=== PATIENT | male | born 1950 | race Caucasian/White ===

== ENCOUNTER → 2017-07-04 10:36 | Outpatient (CLI) | payer OTHER, SELFPAY ==
[2017-05-14 09:29] VITALS: BMI 34.9
[2017-07-04 11:08] LABS: Hemoglobin 16.1 g/dl (13.0-16.5); Mean Corpuscular Hgb 33.6 pg (27.0-32.0); Mean Platelet Vol. 10.8 fl (6.2-12.0); Platelet Count 232 K/mm3 (150-450); RBC Distribution Width CV 12.9 % (11.6-14.6); RBC Distribution Width SD 44.4 fl (35.1-43.9); Red Blood Count 4.79 M/mm3 (4.6-6.2); White Blood Count 9.4 K/mm3 (4.4-11.0)
[2017-07-04 11:13] LABS: Scan Indicated on CBC? Y/N NO
[2017-07-04 11:22] LABS: Erythrocyte Sedimentation Rate 4 mm/hr (0-20)
[2017-07-04 11:27] LABS: ALB/GLOB Ratio 1.1 RATIO (0.9-2.4); AST(SGOT) 53 U/L (15-37); Alanine Aminotransfer ALT/SGPT 84 U/L (16-61); Albumin, Serum 3.7 g/dL (3.2-5.0); Alkaline Phosphatase 107 U/L (45-117); BUN 21 mg/dL (7-18); BUN/Creat Ratio 22.5 RATIO (10-20); Chloride 104 mmol/L (98-107); Creatinine, Serum 0.93 mg/dL (0.70-1.30); EST Glomerular Filtration Rate 86 mL/min (>60); Est Glom Filt Rate - Afr Amer 104 mL/min (>60); Globulin 3.5 g/dL (2.2-4.2); Glucose 116 mg/dL (70-110); Potassium 4.8 mmol/L (3.5-5.1); Protein, Total 7.2 g/dL (6.4-8.2); Sodium Level 140 mmol/L (136-145)
[2017-07-04 11:28] LABS: Anion Gap 6 (5-15)
== END ==
PROVIDERS: Family Provider Family Medicine; PCP Family Medicine; Visit Provider Family Medicine
DX: K73.9 Chronic hepatitis, unspecified (principal)
CPT/HCPCS: 36415; 80053; 85027; 85652

== ENCOUNTER → 2017-07-19 09:18 | Outpatient (CLI) | payer OTHER, SELFPAY ==
[2017-07-19 10:49] LABS: Prothrombin Time (Protime)PT. 12.8 SECONDS (11.7-14.9)
[2017-07-19 11:05] LABS: Microalbumin,Random Urine 8.2 mg/L (NO RANGE EST.); Microalbumin:Creatinine Ratio 7.8 mg/g CRE (<30 mg/g CRE)
[2017-07-19 11:06] LABS: Hemoglobin A1c 6.3 % (4.2-6.3)
[2017-07-20 09:55] LABS: HEPATITIS B SURFACE AG Negative (Negative); Hepatitis A IgM Antibody Negative (Negative)
[2017-07-20 13:55] LABS: Hep B Surface Antibodies Non Reactive (.); Hepatitis B Core AB IgM Negative (Negative)
== END ==
PROVIDERS: Family Provider Family Medicine; PCP Family Medicine; Visit Provider Nurse Practitioner Adult Health
DX: B18.2 Chronic viral hepatitis C (principal); E11.9 Type 2 diabetes mellitus without complications
CPT/HCPCS: 36415; 82043; 82570; 83036; 85610; 86705; 86706; 86709; 87340

== ENCOUNTER → 2017-07-30 09:25 | Outpatient (CLI) | payer OTHER, SELFPAY ==
[2017-07-30 11:11] LABS: Cholesterol 159 mg/dL (200); High Density Lipoprotein 44 mg/dL; Triglycerides 186 mg/dL; Very Low Density Lipoprotein 37 mg/dL (5-40)
== END ==
PROVIDERS: Family Provider Family Medicine; PCP Family Medicine; Visit Provider Family Medicine
DX: E78.5 Hyperlipidemia, unspecified (principal)
CPT/HCPCS: 36415; 80061

== ENCOUNTER → 2017-10-11 09:19 | Outpatient (CLI) | payer OTHER, SELFPAY ==
[2017-10-13 03:06] LABS: HCV Quant. RNA PCR HCV Not Detected IU/mL (.)
== END ==
PROVIDERS: Family Provider Family Medicine; PCP Family Medicine; Visit Provider Nurse Practitioner Adult Health
DX: B18.2 Chronic viral hepatitis C (principal)
CPT/HCPCS: 36415; 87522

== ENCOUNTER → 2018-01-28 13:13 | Outpatient (CLI) | payer OTHER, SELFPAY | PROVIDERS: Family Provider Family Medicine; PCP Family Medicine; Visit Provider Family Medicine | DX: R73.01 Impaired fasting glucose (principal) | CPT/HCPCS: 36415; 83036 ==

== ENCOUNTER → 2018-07-22 10:26 | Outpatient (CLI) | payer OTHER, SELFPAY ==
[2018-07-22 11:18] LABS: Microalbumin,Random Urine 5.8 mg/L (NO RANGE EST.); Microalbumin:Creatinine Ratio 11.1 mg/g CRE (<30 mg/g CRE)
[2018-07-22 11:24] LABS: ALB/GLOB Ratio 1.1 RATIO (0.9-2.4); AST(SGOT) 19 U/L (15-37); Alanine Aminotransfer ALT/SGPT 29 U/L (16-61); Albumin, Serum 3.9 g/dL (3.2-5.0); Alkaline Phosphatase 94 U/L (45-117); Anion Gap 9 (5-15); BUN 18 mg/dL (7-18); BUN/Creat Ratio 20.5 RATIO (10-20); Calcium,Total 8.9 mg/dL (8.5-10.1); Chloride 102 mmol/L (98-107); Cholesterol 154 mg/dL (200); Creatinine, Serum 0.88 mg/dL (0.70-1.30); EST Glomerular Filtration Rate 92 mL/min (>60); Est Glom Filt Rate - Afr Amer 111 mL/min (>60); Globulin 3.4 g/dL (2.2-4.2); Glucose 121 mg/dL (74-106); High Density Lipoprotein 37 mg/dL; Potassium 4.2 mmol/L (3.5-5.1); Protein, Total 7.3 g/dL (6.4-8.2); Sodium Level 140 mmol/L (136-145); Triglycerides 129 mg/dL; Very Low Density Lipoprotein 26 mg/dL (5-40)
[2018-07-22 13:47] LABS: Hemoglobin A1c 6.6 % (4.2-6.3)
== END ==
PROVIDERS: Family Provider Family Medicine; PCP Family Medicine; Referring Provider Family Medicine; Visit Provider Family Medicine
DX: E78.5 Hyperlipidemia, unspecified (principal); E11.9 Type 2 diabetes mellitus without complications; I10 Essential (primary) hypertension
CPT/HCPCS: 36415; 80053; 80061; 82043; 82570; 83036

== ENCOUNTER 2018-11-28 07:46 | Day surgery (SDC) | payer OTHER, SELFPAY ==
--- NOTE | 2018-10-30 07:59 | HP_ITS ---
Intake Vital Signs 10/30/18 Height 5 ft 9 in 10/30/18 Weight: 225 lb 10/30/18 Body Mass Index (BMI) 33.2 10/30/18 Blood Pressure 123/78 H 10/30/18 Blood Pressure Location Lt brachial 10/30/18 Blood Pressure Position Sitting 10/30/18 Respiratory Rate 18 10/30/18 Pulse Rate 71 Intake Visit Reasons: Cscope Consult Condenser Operator Required: No Is patient in pain?: No Allergies NSAIDS (Non-Steroidal Anti-Inflamma Allergy (Verified 10/30/18 10:29) Swelling tramadol [From Ultra] Adverse Reaction (Verified 10/30/18 10:29) Other Medications Albuterol Aerosols [Ventolin Aerosols] 2.5 mg INHALATION Q4H PRN PRN 03/23/16 [History Confirmed 10/30/18] Albuterol IH (ProAir) [Proair Hfa] 2 puff INHALATION 4X/DAY 03/23/16 [History Confirmed 10/30/18] Aspirin 325 mg PO DAILY@0800 03/23/16 [History Confirmed 10/30/18] Doxazosin Mesylate [Cardura] 4 mg PO DAILY 03/23/16 [History Confirmed 10/30/18] Furosemide [Lasix] 40 mg PO DAILY 03/23/16 [History Confirmed 10/30/18] Lisinopril [Zestril] 40 mg PO DAILY 03/23/16 [History Confirmed 10/30/18] Pravastatin [Pravachol] 40 mg PO DAILY 03/23/16 [History Confirmed 10/30/18] Sotalol HCl [Betapace AF (Beta Anthony)] 80 mg PO BID 03/23/16 [History Confirmed 10/30/18] Varenicline [Chantix] 1 mg PO BID 03/23/16 [History Confirmed 10/30/18] Hydrocodone Bitart/Apap 5-325 [[place] 5/325] 1 tab PO Q4H PRN PRN #15 tab 03/29/16 [Rx Confirmed 10/30/18] PFSH Medical History A-fib (Acute) Back problem (Acute) Blood in stool (Acute) Constipation (Acute) Heart attack (Acute) Heart disease (Acute) Heart murmur (Acute) Hemorrhoids (Acute) Rheumatoid aortitis (Acute) HTN (hypertension) (Chronic) Surgical History Cervical post-laminectomy syndrome (Acute) H/O hernia repair (Acute) s/p right forearm surgery (Acute) Family History Mother Cancer Father Cancer Social History Smoking Status: Current every day smoker alcohol intake: never HPI HPI HPI: DENNIS MCGILL, is a 68 M who presents to the office today for HPI HPI Surgical H&P: Yes HPI: DENNIS MCGILL, is a 68 M who presents to the office today for surgical consultation regarding need for screening colonoscopy. His most recent colonoscopy was in 2008. His is [place]. There by report was a previous history of a benign colon polyp. The patient is currently age 69. He does have some intermittent atrial fibrillation. He is on aspirin therapy. He has a history of COPD. Ongoing tobacco use. Recently complained of some lower abdominal discomfort and some constipation. He has had some rectal bleeding but he attributes that to hemorrhoids. He has not had any fever or chills or sweats or nausea or vomiting. He has not had any unexpected weight loss. 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 He denies family history of colon cancer ROS General General: Yes fatigue; no weight change, appetite, colon cancer, breast cancer or weakness HEENT HEENT: No difficulty swallowing, eye injury, eye surgery, swollen glands or hoarseness Endo Endocrine: No thyroid disease, diabetes mellitus, thyroid cancer, Hair loss, heat intolerance or cold intolerance Skin Skin: No rash or changing moles Breast Breast: No left breast lump, right breast lump, nipple discharge, breast pain, abnormal mammogram, abnormal US or breast enlargement Musc Musculoskeletal: Yes back problems, arthritis and rheumatoid arthritis; no gout or joint pain Cardio Cardiovascular: Yes murmur, heart disease, atrial fibrillation, high blood pressure, heart attack and heart stent; no pacemaker, palpitations, shortness of breat with exertion or chest pain Psych Psychiatric: No depression, anxiety or hearing voices Resp Respiratory: Yes shortness of breath, Yes sleep apnea, Yes cough, Yes COPD, No asthma, Yes emphysema, No wheezing Gastro Gastrointestinal: Yes abdominal pain, No nausea or vomiting, No diarrhea, Yes constipation, Yes blood in stool, No acid reflux, Yes hemorrhoids, No ulcers, No gallbladder problem, No black,tarry stools Marbin Hematologic: No blood thinners, No blood disorders, No bleeding, No anemia, No blood clots Neuro Neurologic: No system reviewed and no additional complaints, except as docu, No as per HPI, No abnormal walking, No abnormal hearing, No abnormal movements, No abnormal speech, No behavioral changes, No burning sensations, No confusion, No seizure-like activity, No unsteadiness, No dizziness, No localized weakness, No frequent falls, No headache(s), No lack of coordination, No loss of vision, No memory loss, No numbness, No other visual disturbances, No radiating pain, No restless legs, No sensory deficit, No fainting, No tingling, No tremor(s), No weakness, No other Exam Const General: cooperative, comfortable HENMT Head: normal to inspection Chest Breast Palpation: No nipple discharge Other: Increased anterior posterior diameter Resp Other: End inspiratory wheezing noted bilaterally Cardio Rate: regular rate Rhythm: regular rhythm Heart Sounds: murmur GI Palpation: soft, no hepatosplenomegaly Auscultation: normal bowel sounds Other: Overweight External hemorrhoids Musc Cervical Spine: normal cervical lordosis Neuro Cognition: normal cognition Extrem Other: Bilateral lower extremity nonpitting edema noted Psych Affect: normal affect Assessment & Plan Problems 1. Screening for intestinal cancer Z12.10 Plan Although the patient has not had a screening colonoscopy since October 2008 at which point there was a small tubular adenoma of the sigmoid colon resected. He has some complaints which sound like hemorrhoids. He does have a previous history of diverticulosis but he denies history of diverticulitis. I recommend to him a colonoscopy with possible biopsy or polypectomy as indicated. He is aware of the technique, benefit, risk and alternatives. He has had an opportunity to ask and have questions answered. I have asked that he follow-up with Dr. 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 Because of the patient's atrial fibrillation and COPD we will utilize monitored anesthesia care. Patient has also been instructed to continue his inhalers as appropriate since he has some pulmonary wheeze noted today. I appreciate the opportunity of assisting with his surgical care CC: Dr. Arnav Youssef, III Michel Youssef M.D., F.A.C.S. Coding Level of Care Code Off vis,new,level 3 Diagnoses Screening for intestinal cancer Z12.10 10/30/181999 <Electronically signed by Michel silveira MD> Date _ Michel Youssef MD I have re-examined the patient. There are no clinical changes since date of exam.
[2018-10-30 10:28] VITALS: BMI 33.2
[2018-11-07 07:07] VITALS: BMI 33.2
[2018-11-28] VITALS (8 sets, daily range): BP systolic 103–138; BP diastolic 70–88; PULSE 72–93; RESP 16; TEMP 36.2–36.5; O2SAT 94–96; BMI 33.7
--- NOTE | 2018-11-28 08:45 | COLBX_PTH ---
PATIENT: DENNIS MCGILL LOC: [facility] U#:[id number] AGE/SX: 68/M ROOM: RE11/28/[address]: Dr. Michel Youssef MD : 1950 BED: DIS: 11/28/2018 SPEC #: [id number] RECD: 11/28/18 09:32 STATUS: NATTY GREGORIO #: [id number] BRYAN: 11/28/18 08:[address]: Michel Youssef DEPT: SURGICAL PATHOLOGY RECD BY: Boris Marquez ENTERED: 11/28/18 10:18 SP TYPE: COLON BX OTHR DR: Dr. Arnav Youssef III, MD Tissues: Sigmoid colon biopsy Procedures: Surgery Specimen Level IV HEADER OPERATION: Colonoscopy (MAC) PRE-OP DIAGNOSIS: Screening TISSUE SUBMITTED: Mid sigmoid polyp MICROSCOPIC DIAGNOSIS Mid sigmoid polyp, biopsy: Tubular adenoma. Fragments of fecal material. SJ:margie 7/1/19 MICROSCOPIC DESCRIPTION Slides are reviewed. GROSS DESCRIPTION Received in fixative is one container labeled with the patient's name and designated mid sigmoid polyp. The specimen consists of two bentley-pink polypoid fragments of soft tissue ranging in diameter from 0.3 to 0.4 cm. Additionally, several fragments of fecal material are present within the specimen container. The specimen is totally submitted in one cassette. / CE:margie 11/28/18 TC:1 CPT: 98729
--- NOTE | 2018-12-03 10:44 | OP.ENDO_ITS ---
12/03/2018 Arnav Youssef [address] [place] [address] Re : Colonoscopy procedure for Manuel Chambers Dear Dr. Youssef This procedure was performed on Wednesday, November 28, 2018. My impressions and recommendations are as follows: Impressions : - Non-thrombosed external hemorrhoids, non-thrombosed internal hemorrhoids, internal hemorrhoids that prolapse with straining, but require manual replacement into the anal canal (Grade III) and enlarged prostate found on digital rectal exam. - One 9 mm polyp in the mid sigmoid colon, removed with a hot snare. Resected and retrieved. - Diverticulosis in the entire examined colon. Recommendations : - Discharge patient to home. - Resume previous diet. - Continue present medications. - Telephone my office for pathology results in 1 week. - Repeat colonoscopy in 5 years for surveillance. Consider surgical treatment of hemorrhoids Slightly firm prostate, please follow up with primary care for PSA My findings are described in the full procedure note, which is enclosed. If I can be of further assistance, please feel free to contact me at Doctor phone number(s): Work: . Sincerely, Michel Youssef MD 11/28/2018 9:28:06 AM This report has been signed electronically.
== END 2018-11-28 10:20 | disposition home or self-care (01) ==
LOC: EN 07:46 → AC 07:47
PROVIDERS: Family Provider Family Medicine; PCP Family Medicine; Referring Provider Family Medicine; Visit Provider Surgery
PROC: 0DJD8ZZ Inspection of Lower Intestinal Tract, Via Natural or Artificial Opening Endoscopic (ICD-10-PCS; CPT 45378; principal; 2018-11-28 08:40)
DX: Z12.11 Encounter for screening for malignant neoplasm of colon (principal); D12.5 Benign neoplasm of sigmoid colon; K64.2 Third degree hemorrhoids; K64.4 Residual hemorrhoidal skin tags; N40.0 Benign prostatic hyperplasia without lower urinary tract symptoms; K57.30 Diverticulosis of large intestine without perforation or abscess without bleeding; R01.1 Cardiac murmur, unspecified; I48.91 Unspecified atrial fibrillation; I25.2 Old myocardial infarction; I11.9 Hypertensive heart disease without heart failure; M06.9 Rheumatoid arthritis, unspecified; J43.9 Emphysema, unspecified; Z86.010 Personal history of colon polyps; Z95.5 Presence of coronary angioplasty implant and graft; Z79.82 Long term (current) use of aspirin; Z79.899 Other long term (current) drug therapy; F17.200 Nicotine dependence, unspecified, uncomplicated
CPT/HCPCS: 45385; 88305; J7120; J2405

== ENCOUNTER → 2019-01-28 | Outpatient (CLI) | payer OTHER, SELFPAY ==
[2018-11-28 08:15] VITALS: BMI 33.7
--- NOTE | 2019-01-28 13:57 | ECHOD_ITS ---
Reason For Study: A. fib Procedure This was a 2D Doppler, Color Flow transthoracic echocardiogram. The study was technically difficult. Exam performed in department. Left Ventricle Normal size and thickness. The estimated ejection fraction is 60 %. Unable to assess diastolic dysfunction due to arrhythmia. No regional wall motion abnormalities noted. Right Ventricle Mildly dilated right ventricle. Normal systolic function. Atria The left atrium is severely enlarged. The right atrium is moderately enlarged. Normal atrial septum. Mitral Valve The mitral valve is structurally normal. No prolapse or stenosis seen. Mild (1+) mitral valve insufficiency. Tricuspid Valve Normal tricuspid valve. Mild (1+) tricuspid valve insufficiency. Right ventricular systolic pressure estimated to be 53 mmHg. Moderate pulmonary hypertension. Aortic Valve Trisinus/trileaflet aortic valve. Mild diffuse aortic valve thickening. Moderate focal aortic valve thickening. Moderate focal aortic valve thickening of left coronary cusp. Mild to moderate aortic stenosis. Peak aortic valve gradient 31 mmHg. Mean aortic valve gradient 18 mmHg. Trivial aortic valve insufficiency. Pulmonic Valve The pulmonic valve is not well visualized. Great Vessels Normal aortic root. Normal arch. The inferior vena cava is dilated. Inferior vena cava collapse with sniff. Pericardium/Pleural No pericardial effusion. Medication 22 gauge I.V. with prn adaptor inserted into right arm. Diluted definity 3ml given slow IV push to enhance endocardial definition. MMode/2D Measurements & Calculations LVIDd: 4.1 cm IVSd: 1.2 cm LVOT diam: 2.0 cm LVIDs: 2.9 cm LVPWd: 0.97 cm RVDd: 3.7 cm FS: 30.2 % LVOT area: 3.2 cm2 Ao root diam: 3.1 cm LAV(MOD-bp): 96.8 ml LA A4 area: 28.7 cm2 LAV(MOD-bp) Indexed: 44.2 ml/m2 LAV(MOD-sp2): 94.8 ml LAV(MOD-sp4): 89.4 ml LA dimension(2D): 4.5 cm RA A4 area: 24.2 cm2 Doppler Measurements & Calculations MV E max terry: 105.4 cm/sec Ao V2 max: 270.5 cm/sec AI max terry: 391.3 cm/sec Ao max P.3 mmHg AI max P.3 mmHg Ao V2 mean: 190.0 cm/sec AI dec slope: 213.5 cm/sec2 Ao mean P.9 mmHg AI P1/2t: 536.8 msec Ao V2 VTI: 56.9 cm FROILAN(I,D): 1.2 cm2 FROILAN(V,D): 1.2 cm2 LV V1 max: 104.4 cm/sec SV(LVOT): 71.0 ml PA V2 max: 86.3 cm/sec LV V1 max P.4 mmHg LV V1 mean P.4 mmHg LV V1 mean: 73.7 cm/sec LV V1 VTI: 22.3 cm TR max terry: 309.1 cm/sec TR max P.2 mmHg Interpretation Summary The estimated ejection fraction is 60 %. Unable to assess diastolic dysfunction due to arrhythmia. Mildly dilated right ventricle. The left atrium is severely enlarged. Mild (1+) mitral valve insufficiency. Mild (1+) tricuspid valve insufficiency. Right ventricular systolic pressure estimated to be 53 mmHg. Moderate pulmonary hypertension. Moderate focal aortic valve thickening of left coronary cusp. Mild to moderate aortic stenosis. Trivial aortic valve insufficiency. Pt appears to be in atrial fibrillation. Compared to echo report dated 12/05/2016, LV function has remained the same, but RVSP has increased from 35 to 53 mm Hg and pt is now in atrial fibrillation. Ordering Physician: DEE GALLARDO Referring Physician: [facility] , Out of Performed By: Camilla Temple, CHAITANYA
== END | disposition home or self-care (01) ==
LOC: CVS 13:53
PROVIDERS: Family Provider Family Medicine; PCP Family Medicine
DX: I48.2 Chronic atrial fibrillation (principal); I35.0 Nonrheumatic aortic (valve) stenosis
CPT/HCPCS: 93306; Q9957; A4216; C8929

== ENCOUNTER → 2019-01-28 | Outpatient (CLI) | payer OTHER, SELFPAY ==
[2018-11-28 08:15] VITALS: BMI 33.7
[2019-01-28 09:10] LABS: AST(SGOT) 19 U/L (15-37); Alanine Aminotransfer ALT/SGPT 29 U/L (16-61); Albumin, Serum 3.8 g/dL (3.2-5.0); Alkaline Phosphatase 106 U/L (45-117); Anion Gap 5 (5-15); BUN 14 mg/dL (7-18); BUN/Creat Ratio 14.3 RATIO (10-20); Calcium,Total 8.9 mg/dL (8.5-10.1); Chloride 103 mmol/L (98-107); Cholesterol 151 mg/dL (200); Creatinine, Serum 0.98 mg/dL (0.70-1.30); EST Glomerular Filtration Rate 81 mL/min (>60); Est Glom Filt Rate - Afr Amer 98 mL/min (>60); Globulin 3.7 g/dL (2.2-4.2); Glucose 115 mg/dL (74-106); High Density Lipoprotein 39 mg/dL; Protein, Total 7.5 g/dL (6.4-8.2); Sodium Level 142 mmol/L (136-145); Triglycerides 93 mg/dL; Very Low Density Lipoprotein 19 mg/dL (5-40)
[2019-01-28 09:25] LABS: Creatinine, Urine (random) < 13.00 mg/dL (NO RANGE EST.); Microalbumin,Random Urine < 5.0 mg/L (NO RANGE EST.)
== END | disposition home or self-care (01) ==
PROVIDERS: Family Provider Family Medicine; PCP Family Medicine; Referring Provider Family Medicine; Visit Provider Family Medicine
DX: E78.5 Hyperlipidemia, unspecified (principal); E11.9 Type 2 diabetes mellitus without complications
CPT/HCPCS: 36415; 80053; 80061; 82043; 82570

== ENCOUNTER → 2019-03-24 12:50 | Outpatient (CLI) | payer OTHER, SELFPAY ==
[2019-03-19 06:59] VITALS: BMI 33.7
[2019-03-24 12:13] VITALS: BMI 34.8
--- NOTE | 2019-03-24 12:51 | CT_ITS ---
STUDY: LOW DOSE CT LUNG CANCER SCREENING REASON FOR EXAM: Male, 69 years old. 40 pack-year history of smoking. COPD. RADIATION DOSAGE (If Supplied By Facility): CTDIvol = ( 4.02 ) mGy, DLP = ( 142.95 ) mGycm TECHNIQUE: No contrast was administered. Low dose technique was utilized (average mAS-38 and kVp 120). 1.25 mm axial source images with a slice interval of 1.25-mm were reconstructed in lung windows. 2.5 mm axial source images with a slice interval of 2.5-mm were reconstructed in lung windows. 5.0 mm axial source images with a slice interval of 5.0-mm were reconstructed in soft tissue windows. Nodule measured using lung windows on PACS and/or independent workstation with automated measurement of minimum and maximum diameter. Nodule measurement reported as average diameter rounded to the nearest whole number. Growth is defined as an increase ins size of greater than 1.5 mm. COMPARISON: None. NODULES: No suspicious nodules are seen. Emphysema: Mild degree of scarring at the lung apices and the left lung base. Findings suggestive of scarring in the lateral aspect of the lingular segment of the left upper lobe. Aorta: Atherosclerotic calcification of the aortic arch. Coronary arteries: Coronary artery calcification. Heart: Pulmonary artery: Mediastinal nodes: Small benign-appearing lymph nodes. Other chest and abdominal findings: Degenerative changes of the thoracic spine. CT/Low Dose CT Lung Screening IMPRESSION: Lung-RADS category 2 - Continue annual screening with LDCT in 12 months. IMPORTANT NOTES FOR USE: ACR Lung-RADS Version 1.0 Assessment Categories Release Date: September 28, 2013 Category: Coded 0-4 bases on nodule(s) with highest degree of suspicion. Negative screen is defined as categories 1 and 2; a positive screen is defined as categories 3 and 4. Category 3 and 4A nodules that are unchanged on interval CT should be coded as category 2, and individuals returned to screening in 12 months. Category 4X: Category 3 or 4 nodules with additional imaging findings that increase the suspicion of lung cancer, such as spiculation, GGN that doubles in size in 1 year, enlarged lymph notes, etc. Category Modifiers: S (significant finding unrelated to lung cancer) and C (prior history of treated lung cancer) may be added to the 0-4 Lung-RADS Electronically Signed: Marlon Barajas, at 13:21 EDT , Service support ,
== END ==
PROVIDERS: Family Provider Family Medicine; PCP Family Medicine; Referring Provider Nurse Practitioner Family; Visit Provider Nurse Practitioner Family
DX: Z12.2 Encounter for screening for malignant neoplasm of respiratory organs (principal); F17.209 Nicotine dependence, unspecified, with unspecified nicotine-induced disorders
CPT/HCPCS: G0297

== ENCOUNTER → 2019-05-21 10:22 | Outpatient (CLI) | payer OTHER, SELFPAY ==
[2019-03-24 12:13] VITALS: BMI 34.8
[2019-05-21 11:59] LABS: Hemoglobin A1c 6.7 % (4.2-6.3)
== END ==
PROVIDERS: Family Provider Family Medicine; PCP Family Medicine; Referring Provider Family Medicine; Visit Provider Family Medicine
DX: R73.01 Impaired fasting glucose (principal)
CPT/HCPCS: 36415; 83036

== ENCOUNTER → 2020-02-10 09:32 | Outpatient (CLI) | payer OTHER, SELFPAY ==
[2019-03-24 12:13] VITALS: BMI 34.8
[2020-02-10 10:58] LABS: Hemoglobin A1c 6.5 % (3.8-5.6)
[2020-02-10 11:01] LABS: ALB/GLOB Ratio 1.1 RATIO (0.9-2.4); AST(SGOT) 14 U/L (15-37); Alanine Aminotransfer ALT/SGPT 25 U/L (16-61); Albumin, Serum 3.8 g/dL (3.2-5.0); Alkaline Phosphatase 83 U/L (45-117); Anion Gap 5 (5-15); BUN 14 mg/dL (7-18); BUN/Creat Ratio 17.2 RATIO (10-20); Calcium,Total 8.7 mg/dL (8.5-10.1); Chloride 102 mmol/L (98-107); Cholesterol 144 mg/dL (200); Creatinine, Serum 0.81 mg/dL (0.70-1.30); EST Glomerular Filtration Rate 100 mL/min (>60); Est Glom Filt Rate - Afr Amer 121 mL/min (>60); Globulin 3.4 g/dL (2.2-4.2); Glucose 127 mg/dL (74-106); High Density Lipoprotein 36 mg/dL; Protein, Total 7.2 g/dL (6.4-8.2); Sodium Level 137 mmol/L (136-145); Triglycerides 83 mg/dL; Very Low Density Lipoprotein 17 mg/dL (5-40)
== END ==
PROVIDERS: PCP Family Medicine; Referring Provider Family Medicine; Visit Provider Family Medicine
DX: E11.9 Type 2 diabetes mellitus without complications (principal); E78.5 Hyperlipidemia, unspecified
CPT/HCPCS: 36415; 80053; 80061; 83036

== ENCOUNTER → 2020-03-15 14:01 | Outpatient (CLI) | payer OTHER, SELFPAY ==
[2019-03-24 12:13] VITALS: BMI 34.8
[2020-03-10 14:43] VITALS: BMI 34.8
--- NOTE | 2020-03-15 14:09 | ECHOCS_ITS ---
Reason For Study: PHTN Procedure This was a 2D Doppler, Color Flow transthoracic echocardiogram. Technically difficult study due to patient body habitus as well as patient positioning. Patient would not lay on left side or flat, patient was sitting at a 60 degree angle. The study was technically difficult. Contrast injection was performed. Exam performed in department. Left Ventricle Normal LV size. Sigmoid septum. Left ventricular systolic function is normal. The estimated ejection fraction is 60 %. Unable to assess diastolic dysfunction. No regional wall motion abnormalities noted. Right Ventricle Normal RV size. Normal systolic function. Atria The left atrium is moderately enlarged. The right atrium is mildly enlarged. No doppler evidence for ASD. Mitral Valve There is no mitral annular calcification. Normal mitral valve. Mild (1+) mitral valve insufficiency. Tricuspid Valve Normal tricuspid valve. Mild tricuspid valve insufficiency. Right ventricular systolic pressure estimated to be 46 mmHg. Aortic Valve Trisinus/trileaflet aortic valve. Mild diffuse aortic valve thickening. Mild focal aortic valve calcification. Moderate aortic stenosis. Mild (1+) aortic valve insufficiency. Pulmonic Valve The pulmonic valve is not well visualized. Great Vessels Normal sized aortic root. Pericardium/Pleural No pericardial effusion. Medication 22 gauge I.V. with prn adaptor inserted into left arm. Diluted definity 5ml given slow IV push to enhance endocardial definition. MMode/2D Measurements & Calculations LVOT diam: 2.0 cm Ao root diam: 3.1 cm LAV(MOD-bp): 107.7 ml LVOT area: 3.2 cm2 LAV(MOD-bp) Indexed: 49.1 ml/m2 LAV(MOD-sp2): 118.6 ml LAV(MOD-sp4): 95.7 ml LA A4 area: 29.1 cm2 RA A4 area: 25.3 cm2 Doppler Measurements & Calculations MV E max terry: 103.5 cm/sec Ao V2 max: 304.6 cm/sec AI max terry: 431.4 cm/sec Ao max P.4 mmHg AI max P.7 mmHg Ao V2 mean: 203.8 cm/sec AI dec slope: 200.7 cm/sec2 Ao mean P.7 mmHg AI P1/2t: 629.5 msec Ao V2 VTI: 62.4 cm FROILAN(I,D): 0.97 cm2 FROILAN(V,D): 0.99 cm2 LV V1 max: 95.1 cm/sec MR max terry: 569.4 cm/sec SV(LVOT): 60.4 ml LV V1 max P.6 mmHg MR max P.7 mmHg LV V1 mean P.9 mmHg LV V1 mean: 64.6 cm/sec LV V1 VTI: 19.1 cm PA V2 max: 79.0 cm/sec TR max terry: 326.6 cm/sec TR max P.7 mmHg Interpretation Summary The study was technically difficult. Contrast injection was performed. Left ventricular systolic function is normal. The estimated ejection fraction is 60 %. Sigmoid septum. The left atrium is moderately enlarged. The right atrium is mildly enlarged. Mild (1+) mitral valve insufficiency. Mild tricuspid valve insufficiency. Moderate aortic stenosis. Mild (1+) aortic valve insufficiency. Right ventricular systolic pressure estimated to be 46 mmHg c/w pulmonary hypertension. Unable to assess diastolic dysfunction. Ordering Physician: ANGELA AMES Referring Physician: ANGELA AMES Performed By: Joel Jacob RCS
== END ==
PROVIDERS: PCP Family Medicine
DX: I27.20 Pulmonary hypertension, unspecified (principal)
CPT/HCPCS: 93306; Q9957; A4216; C8929

== ENCOUNTER → 2020-05-10 12:38 | Outpatient (CLI) | payer OTHER, SELFPAY ==
[2020-03-28 14:25] VITALS: BMI 37.9
[2020-05-10 12:08] VITALS: BMI 35.1
--- NOTE | 2020-05-10 12:40 | CT_ITS ---
STUDY: LOW DOSE CT LUNG CANCER SCREENING REASON FOR EXAM: Male, 70 years old. LUNG SCREENING, SMOKER X 50 YRS-1/2 PPD, HX [place] RADIATION DOSAGE (If Supplied By Facility): CTDIvol = ( 3.40 ) mGy, DLP = ( 117.83 ) mGycm TECHNIQUE: No contrast was administered. Low dose technique was utilized (average mAS-38 and kVp 120). 1.25 mm axial source images with a slice interval of 1.25-mm were reconstructed in lung windows. 2.5 mm axial source images with a slice interval of 2.5-mm were reconstructed in lung windows. 5.0 mm axial source images with a slice interval of 5.0-mm were reconstructed in soft tissue windows. Nodule measured using lung windows on PACS and/or independent workstation with automated measurement of minimum and maximum diameter. Nodule measurement reported as average diameter rounded to the nearest whole number. Growth is defined as an increase ins size of greater than 1.5 mm. COMPARISON: Comparison is made with prior study dated 03/24/2019. NODULES: Stable 3.6 mm noncalcified nodule in the lateral anterior aspect of the right middle lobe as seen on axial image #160. Emphysema: Stable emphysematous changes and scarring at the lung apices. Endobronchial lesion: None Aorta: Atherosclerotic calcification of the aortic arch. Coronary arteries: Coronary artery calcification. Mediastinal nodes: Stable small mediastinal lymph nodes. Other chest and abdominal findings: Degenerative changes of the thoracic spine. CT/Low Dose CT Lung Screening IMPRESSION: Lung-RADS category 2 - Continue annual screening with LDCT in 12 months. IMPORTANT NOTES FOR USE: ACR Lung-RADS Version 1.0 Assessment Categories Release Date: September 28, 2013 Category: Coded 0-4 bases on nodule(s) with highest degree of suspicion. Negative screen is defined as categories 1 and 2; a positive screen is defined as categories 3 and 4. Category 3 and 4A nodules that are unchanged on interval CT should be coded as category 2, and individuals returned to screening in 12 months. Category 4X: Category 3 or 4 nodules with additional imaging findings that increase the suspicion of lung cancer, such as spiculation, GGN that doubles in size in 1 year, enlarged lymph notes, etc. Category Modifiers: S (significant finding unrelated to lung cancer) and C (prior history of treated lung cancer) may be added to the 0-4 Lung-RADS Electronically Signed: Marlon Barajas, at 13:11 EST , Service support ,
== END ==
PROVIDERS: PCP Family Medicine; Referring Provider Nurse Practitioner Family; Visit Provider Nurse Practitioner Family
DX: Z12.2 Encounter for screening for malignant neoplasm of respiratory organs (principal); F17.209 Nicotine dependence, unspecified, with unspecified nicotine-induced disorders
CPT/HCPCS: G0297

== ENCOUNTER → 2020-06-07 10:43 | Outpatient (CLI) | payer OTHER, SELFPAY ==
[2020-05-10 12:08] VITALS: BMI 35.1
[2020-06-07 11:34] LABS: Hematocrit 46.8 % (40-54); Mean Corp Hgb Conc 32.1 g/dL (32-36); Mean Corpuscular Hgb 31.1 pg (27.0-32.0); Mean Corpuscular Volume 96.9 fL (80-94); Mean Platelet Vol. 10.3 fl (6.2-12.0); Platelet Count 245 K/mm3 (150-450); RBC Distribution Width CV 13.2 % (11.6-14.6); RBC Distribution Width SD 47.8 fl (35.1-43.9); Red Blood Count 4.83 M/mm3 (4.6-6.2); White Blood Count 10.8 K/mm3 (4.4-11.0)
[2020-06-07 11:53] LABS: Hemoglobin A1c 6.5 % (3.8-5.6)
[2020-06-07 12:00] LABS: ALB/GLOB Ratio 1.1 RATIO (0.9-2.4); AST(SGOT) 12 U/L (15-37); Alanine Aminotransfer ALT/SGPT 27 U/L (16-61); Albumin, Serum 3.9 g/dL (3.2-5.0); Alkaline Phosphatase 88 U/L (45-117); Anion Gap 4 (5-15); BUN 16 mg/dL (7-18); BUN/Creat Ratio 18.8 RATIO (10-20); Calcium,Total 8.7 mg/dL (8.5-10.1); Chloride 100 mmol/L (98-107); Cholesterol 168 mg/dL (200); Creatinine, Serum 0.85 mg/dL (0.70-1.30); EST Glomerular Filtration Rate 95 mL/min (>60); Est Glom Filt Rate - Afr Amer 115 mL/min (>60); Globulin 3.6 g/dL (2.2-4.2); Glucose 116 mg/dL (74-106); High Density Lipoprotein 48 mg/dL; Potassium 3.9 mmol/L (3.5-5.1); Protein, Total 7.5 g/dL (6.4-8.2); Sodium Level 138 mmol/L (136-145); Triglycerides 78 mg/dL; Very Low Density Lipoprotein 16 mg/dL (5-40)
== END ==
PROVIDERS: PCP Family Medicine; Referring Provider Family Medicine; Visit Provider Family Medicine
DX: B18.2 Chronic viral hepatitis C (principal); E11.9 Type 2 diabetes mellitus without complications; E78.5 Hyperlipidemia, unspecified; I48.91 Unspecified atrial fibrillation
CPT/HCPCS: 36415; 80053; 80061; 83036; 85027